=== PATIENT | female | born 1945 | race Caucasian/White ===

== ENCOUNTER 2019-09-16 14:09 | Inpatient (IN) | payer MEDICARE, OTHER ==
[~2019-09-16] VITALS: Ht 162.6 cm; Wt 83.0 kg
[2019-10-04] MEDS ORDERED: COREG 3.1253.125 MG PO (15:05)
[2019-10-04] MEDS ORDERED: LISINOPRIL40 MG PO (15:06)
[2019-10-04] MEDS ORDERED: ZANAFLEX4 MG PO (15:06)
[2019-10-04] MEDS ORDERED: LIPITOR10 MG PO (15:06)
[2019-10-04] MEDS ORDERED: NORVASC10 MG PO (15:06)
[2019-10-04] MEDS ORDERED: PEPCID40 MG PO (15:06)
[2019-10-04] MEDS ORDERED: ALENDRONATE SOD35 MG PO (15:07)
[2019-10-05 11:43] LABS: ANION GAP 13.1 mmol/L (8-16); BASOPHILS 0.3 % (0-2); CALCIUM 9.6 mg/dL (8.5-10.1); CREATININE - SERUM 1.2 mg/dL (0.6-1.3); EOSINOPHILS 1.1 % (0-7); HEMATOCRIT 39.7 % (36.0-48.0); HEMOGLOBIN 12.9 g/dL (12-16); IMMATURE GRANULOCYTES 0.2 % (0-5); LYMPHOCYTES 37.7 % (15-50); MCH 31.2 pg (26.0-34.0); MCHC 32.5 g/dL (31.0-37.0); MCV 95.9 fL (80.0-100.0); MEAN PLATELET VOLUME 10.3 fL (7.4-10.4); MONOCYTES 4.1 % (2-11); NEUTROPHILS 56.6 % (40-80); PLATELET COUNT 327 10x3/uL (130-400); POTASSIUM - SERUM 4.1 mmol/L (3.5-5.1); RBC 4.14 10x6/uL (4.00-5.40); WBC 12.3 10x3/uL (4.8-10.8)
[2019-10-05 11:50] LABS: APTT 26.4 SECONDS (22.8-39.4); INR 0.91 (0.85-1.17); PROTIME 12.2 SECONDS (11.6-15.0)
[2019-10-05 14:02] LABS: BACTERIA FEW /hpf (NEGATIVE); BILIRUBIN NEGATIVE (NEGATIVE); EPITHELIAL CELLS 0-5 /hpf (0-5); GLUCOSE NEGATIVE (NEGATIVE); KETONE NEGATIVE (NEGATIVE); NITRITE NEGATIVE (NEGATIVE); RED CELLS - URINE RARE /hpf (0-5); UROBILINOGEN NORMAL (NORMAL); WHITE CELLS - URINE 0-5 /hpf (NEGATIVE)
[2019-10-10] VITALS (12 sets, daily range): BP systolic 84–135; BP diastolic 39–75; BMI 32.3; BMI 31.5
[2019-10-10] MEDS ORDERED: FISH OIL 1,0001 CA1 PO (06:19)
[2019-10-10] MEDS ORDERED: VITAMIN D10000 UNI1 PO (06:19)
[2019-10-10] MEDS ORDERED: CENTRUM SILVER1 EAC3 PO (06:20)
[2019-10-10 06:52] LABS: BILIRUBIN NEGATIVE (NEGATIVE); GLUCOSE NEGATIVE (NEGATIVE); KETONE NEGATIVE (NEGATIVE); NITRITE NEGATIVE (NEGATIVE); UROBILINOGEN NORMAL (NORMAL)
--- NOTE | 2019-10-10 08:48 | NUR ---
PLASMA BLADE SETTING 01/08 GROUBDING PAD LEFT FLANK LOT # [id number] EXP 04/25/2021 PT RIGHT LEG CLEANED WITH HIBICLENS AND ALCOHOL FROM THIGH TO TOES CIRCUMFERENTIALLY PRIOR TO PREP RIGHT LEG PREPPED WITH CHLORAPREP X2 FROM THIGH TO TOES CIRCUMFERENTIALLY. RN IN STERILE ATTIRE TO PREP PT PRIO TO PROCEDURE. WOUND BED PACKED WITH TOBRA AND VANC. TRAFFIC IN ROOM KEPT TO MINIMUM.
--- NOTE | 2019-10-10 10:18 | NUR ---
1015 DR COTE AT BEDSIDE. REBLOCKED KNEE. WILL CONTINUE TO MONITOR.
--- NOTE | 2019-10-10 10:53 | NUR ---
PT ARRIVED TO FLOOR VIA BED. ALERT AND ORIENTED. O2 AT 2L VIA NC. RIGHT KNEE DRESSING C/D/I. VS STABLE. BP LOW. WILL CONTINUE TO MONITOR. BED LOW. CL IN REACH.
[2019-10-10] MEDS ORDERED: COREG 3.1253.125 MG PO (10:55)
[2019-10-10] MEDS ORDERED: LISINOPRIL40 MG PO (10:55)
[2019-10-10] MEDS ORDERED: NORVASC10 MG PO ×2 (10:56)
[2019-10-10] MEDS ORDERED: ZANAFLEX2 M1 PO (10:57)
--- NOTE | 2019-10-10 11:41 | NUR ---
MAP 55. BP 93/39. CALLED AND SPOKE WITH JED IN SX BOLUS INITIATED.
--- NOTE | 2019-10-10 11:52 | NUR ---
BP NOW 84/44. MAP 61. WILL COTERNANUE TO MONITOR.
--- NOTE | 2019-10-10 13:38 | NUR ---
PT LYING IN BED. EYES CLOSED. CHEST RISING AND FALLING. VS STABLE. WILL CONTINUE TO MONITOR. BED LOW. CL IN REACH.
[2019-10-10 13:54] LABS: HEMOGLOBIN 12.4 g/dL (12-16)
--- NOTE | 2019-10-10 16:57 | NUR ---
PT TAKEN OFF OF O2 AND SATING 98% ON ROOM AIR.
--- NOTE | 2019-10-10 17:30 | MORECARE ---
CASE MANAGEMENT DISCHARGE SUMMARY PATIENT: NICOLE CLIFTON UNIT: [id number] ADM DATE: 10/10/19 AGE: 74 : 46 SEX: F ROOM/BED: D.1208 AUTHOR: HADLEY,DOC PHYSICIAN: REFERRING PHYSICIAN: MAXIMUS CORREA MD DATE OF SERVICE: 10/10/19 Discharge Plan Patient Name: NICOLE CLIFTON Facility: [facility]:[place] : 1945 Planned Disposition: Outpatient PT\OT Anticipated Discharge Date: 10/13/19 Discharge Date: Expected LOS: 3 Initial Reviewer: [email or web address] Initial Review Date: 10/10/2019 Generated: 10/10/19 6:30 pm Comments DCP- Discharge Planning Updated by [id number]: Daija Copeland on 10/10/19 4:[address] DC PLAN: Return home with her . Needs CPM Ordered - Will Call Annalee on Thursday. PROCEDURE: R TKA, Left knee manipulation. OP THERAPY APPOINTMENT DATE: Will call on Thursday to make appointment. CM met with patient to complete initial dc planning assessment. CM educated patient on the CM role and verbal consent given by patient to complete assessment. CM verified patient's address, phone number, and emergency contact phone numbers. Patient lives at home with . At discharge patient plans to return home and feels this is a safe discharge. CM discussed availability of home health, rehab services, and medical equipment. Patient chose outpatient therapy at [facility]. AGNIESZKA form presented, explained, and signed for [facility]. Signed form placed in chart and left with the patient. CM unable to make appointment as they are closed at this time. Appointment to be made tomorrow. Patient stated sh received her walker and bsc but she refused the CMP because her sister told her she didn't need it. Now patient wants the CPM ordered. CM will contact Annalee tomorrow to get the CPM Ordered. Patient reports transportation to and from therapy will be her . Transportation provider at discharge will be her . CM will continue to follow and will assist as needed with dc plans/needs. Daija Copeland RN, [facility] DCPIA - Discharge Planning Initial Assessment Updated by [id number]: Daija Copeland on 10/10/19 5:25 pm * Is the patient Alert and Oriented? Yes * How many steps to enter\exit or inside your home? * PCP Dr. Madeleine Hooker * Pharmacy [facility]/ * Preadmission Environment Home with Family * ADLs Independent * Equipment Bedside Commode Rolling Walker * Other Equipment Need to have CMP Ordered. * List name and contact numbers for known caregivers / representatives who currently or will assist patient after discharge: Cheo Red [facility] - [phone] * Verbal permission to speak to the caregivers and representatives has been obtained from the patient. Yes * Community resources currently utilized None * Additional services required to return to the preadmission environment? Yes * Can the patient safely return to the preadmission environment? Yes * Has this patient been hospitalized within the prior 30 days at any hospital? No Patient Name: NICOLE CLIFTON Page [phone] at 1730 All edits/amendments must be made on the electronic document DICTATION DATE: 10/10/191729 CHAIN MACHINE OPERATOR: ADENIKE 10/10/191729 RPT#: [id number] DC DATE: STATUS: ADM IN [facility] [address] [place] [address] END OF REPORT
--- NOTE | 2019-10-10 17:40 | NUR ---
PT PLACED ON CPM. PT STATES SHE HAS NO FURTHER NEEDS AT THIS TIME. PT WATCHING TV. ON ROOM AIR. BED LOW. CL IN REACH. WILL CONTINUE TO MONITOR.
--- NOTE | 2019-10-10 17:55 | NUR ---
SPOKE WITH LAB AND THEY STATED THEY HAVE ENOUGH URINE FOR CULTURE. COLLECTED URINE IN COMPUTER.
--- NOTE | 2019-10-10 19:25 | NUR ---
PATIENT RESTING IN BED WITH NO S/S OF DISTRESS ON CPM MACHINE TO RIGHT LEG. ASSISTED PATIENT OFF CPM AND ASSISTED WITH BEDPAN. PLACED PATIENT BACK ON CPM TO HER RIGHT KNEE. PATIENT DENIES OTHER NEEDS AT THIS TIME. BED IN LOWEST POSITION AND CALL LIGHT WITHIN REACH. ENCOURAGED THE PATIENT TO CALL IF SHE HAS OTHER NEEDS. WILL CONTINUE TO MONITOR.
--- NOTE | 2019-10-10 20:40 | NUR ---
REMOVED PATIENT FROM CPM MACHINE
[2019-10-11 01:00] VITALS: BP 99/43
[2019-10-11 04:45] VITALS: BP 97/40
--- NOTE | 2019-10-11 05:15 | NUR ---
PLACED PATIENT ON CPM TO RIGHT KNEE
[2019-10-11 05:16] LABS: BILIRUBIN NEGATIVE (NEGATIVE); GLUCOSE 100 mg/dL (NEGATIVE); KETONE NEGATIVE (NEGATIVE); NITRITE NEGATIVE (NEGATIVE); SPECIFIC GRAVITY 1.015 (1.005-1.020); UROBILINOGEN NORMAL (NORMAL)
[2019-10-11 06:28] LABS: BASOPHILS 0.1 % (0-2); EOSINOPHILS 0 % (0-7); HEMATOCRIT 32.9 % (36.0-48.0); HEMOGLOBIN 10.4 g/dL (12-16); IMMATURE GRANULOCYTES 0.2 % (0-5); LYMPHOCYTES 22.3 % (15-50); MCH 31.3 pg (26.0-34.0); MCHC 31.6 g/dL (31.0-37.0); MCV 99.1 fL (80.0-100.0); MEAN PLATELET VOLUME 11.1 fL (7.4-10.4); MONOCYTES 11.2 % (2-11); NEUTROPHILS 66.2 % (40-80); RBC 3.32 10x6/uL (4.00-5.40); RDW 14.2 % (11.5-14.5); WBC 13.8 10x3/uL (4.8-10.8)
[2019-10-11 06:34] LABS: ANION GAP 19.2 mmol/L (8-16); CARBON DIOXIDE 21.1 mmol/L (21.0-32.0); CREATININE - SERUM 1.3 mg/dL (0.6-1.3); MAGNESIUM - SERUM 1.8 mg/dL (1.8-2.4); PHOSPHOROUS 3.8 mg/dL (2.5-4.9); POTASSIUM - SERUM 4.3 mmol/L (3.5-5.1)
[2019-10-11 06:38] LABS: PLATELET COUNT 235 10x3/uL (130-400)
--- NOTE | 2019-10-11 07:20 | NUR ---
REPORT RECEIVED. PT ON CPM. IV TO LEFT HAND WITH 1/2NS AT 50ML/HR. PT ALERT AND ORIENTED. ON ROOM AIR. PT HAS ANGELITA HOSE ON AND SCD TO LEFT LEG. WILL CONTINUE TO MONITOR.
[2019-10-11 08:08] VITALS: BP 108/40
--- NOTE | 2019-10-11 08:50 | NUR ---
CPM TAKEN OFF OF PT. ANGELITA HOSE REMOVED. PLEXI PULSE APPLIED TO RIGHT FOOT. SCD TO LEFT CALF.
--- NOTE | 2019-10-11 09:42 | NUR ---
PHYSICAL THERAPY GOT PT OUT OF BED TO CHAIR.
[2019-10-11 11:00] VITALS: BP 115/55
--- NOTE | 2019-10-11 11:26 | MORECARE ---
CASE MANAGEMENT DISCHARGE SUMMARY PATIENT: NICOLE LCIFTON UNIT: [id number] ADM DATE: 10/10/19 AGE: 74 : 46 SEX: F ROOM/BED: D.1208 AUTHOR: HADLEY,DOC PHYSICIAN: REFERRING PHYSICIAN: MAXIMUS CORREA MD DATE OF SERVICE: 10/11/19 Discharge Plan Patient Name: NICOLE CLIFTON Facility: [facility]:[place] : 1945 Planned Disposition: Outpatient PT\OT Anticipated Discharge Date: 10/13/19 Discharge Date: Expected LOS: 3 Initial Reviewer: [email or web address] Initial Review Date: 10/10/2019 Generated: 10/11/19 12:25 pm Comments DCP- Discharge Planning Updated by [id number]: Stefany Arguelles on 10/11/19 10:[address] @0950 notified Alexandrea of patient's need for CPM. She states she will notify Aggie to reorder it. DCP- Discharge Planning Updated by [id number]: Daija Copeland on 10/10/19 4:[address] DC PLAN: Return home with her . Needs CPM Ordered - Will Call Annalee on Thursday. PROCEDURE: R TKA, Left knee manipulation. OP THERAPY APPOINTMENT DATE: Will call on Thursday to make appointment. CM met with patient to complete initial dc planning assessment. CM educated patient on the CM role and verbal consent given by patient to complete assessment. CM verified patient's address, phone number, and emergency contact phone numbers. Patient lives at home with . At discharge patient plans to return home and feels this is a safe discharge. CM discussed availability of home health, rehab services, and medical equipment. Patient chose outpatient therapy at [facility]. AGNIESZKA form presented, explained, and signed for [facility]. Signed form placed in chart and left with the patient. CM unable to make appointment as they are closed at this time. Appointment to be made tomorrow. Patient stated sh received her walker and bsc but she refused the CMP because her sister told her she didn't need it. Now patient wants the CPM ordered. CM will contact Annalee tomorrow to get the CPM Ordered. Patient reports transportation to and from therapy will be her . Transportation provider at discharge will be her . CM will continue to follow and will assist as needed with dc plans/needs. Daija Copeland RN, CCM DCPIA - Discharge Planning Initial Assessment Updated by [id number]: Daija Copeland on 10/10/19 5:25 pm * Is the patient Alert and Oriented? Yes * How many steps to enter\exit or inside your home? * PCP Dr. Madeleine Hooker * Pharmacy [facility]/ * Preadmission Environment Home with Family * ADLs Independent * Equipment Bedside Commode Rolling Walker * Other Equipment Need to have CMP Ordered. * List name and contact numbers for known caregivers / representatives who currently or will assist patient after discharge: Cheo Red - [facility] - [phone] * Verbal permission to speak to the caregivers and representatives has been obtained from the patient. Yes * Community resources currently utilized None * Additional services required to return to the preadmission environment? Yes * Can the patient safely return to the preadmission environment? Yes * Has this patient been hospitalized within the prior 30 days at any hospital? No Coverage Notice Reviewer: [id number] Sandhya Copeland Notice Issued Date-Time: 10/10/2019 17:35 Notice Type: IM Admission Notice Notice Delivered To: Patient Relationship to Patient: Global Climate Change Researcher Name: Delivery Method: - Mel Days: Prior Verbal Notification: Recipient Understood Notice: Yes Recipient Signature: Yes Med Rec Note Co-signed by Attending: Coverage Notice Comment: DC IMM delivered, explained, signed by the patient, and placed in his chart. Signed form also left with patient. Daija Copeland RN , CCM Reviewer: [id number] Sandhya Copeland Notice Issued Date-Time: 10/10/2019 17:35 Notice Type: Patient Choice Letter Notice Delivered To: Patient Relationship to Patient: Global Climate Change Researcher Name: Delivery Method: - Mel Days: Prior Verbal Notification: Recipient Understood Notice: Yes Recipient Signature: Yes Med Rec Note Co-signed by Attending: Coverage Notice Comment: commercial parts professional op therapy Last DP export: 10/10/19 4:30 pm Patient Name: NICOLE CLIFTON Page [phone] at 1126 All edits/amendments must be made on the electronic document DICTATION DATE: 10/11/19 1125 FORM COVERER: ADENIKE 10/11/19 1125 RPT#: [id number] DC DATE: STATUS: ADM IN [facility] [address] [place] [address] END OF REPORT
--- NOTE | 2019-10-11 11:51 | NUR ---
REQUESTED AND GIVNE ONE HYDROCODONE PO FOR C/O RIGHT KNEE PAIN LEVEL 8. WILL MONITOR.
--- NOTE | 2019-10-11 12:03 | MORECARE ---
CASE MANAGEMENT DISCHARGE SUMMARY PATIENT: NICOLE CLIFTON UNIT: [id number] ADM DATE: 10/10/19 AGE: 74 : 46 SEX: F ROOM/BED: D.1208 AUTHOR: HADLEY,DOC PHYSICIAN: REFERRING PHYSICIAN: MAXIMUS CORREA MD DATE OF SERVICE: 10/11/19 Discharge Plan Patient Name: NICOLE CLIFTON Facility: [facility]:[place] : 1945 Planned Disposition: Outpatient PT\OT Anticipated Discharge Date: 10/13/19 Discharge Date: Expected LOS: 3 Initial Reviewer: [email or web address] Initial Review Date: 10/10/2019 Generated: 10/11/19 1:02 pm Comments DCP- Discharge Planning Updated by [id number]: Stefany Arguelles on 10/11/19 10:[address] Outpatient Therapy [facility] Thursday, 2019 @1:00. Be there at 12:45 for pre-registration. Copy of appointment given to patient. DCP- Discharge Planning Updated by [id number]: Stefany Arguelles on 10/11/19 10:[address] @0950 notified Alexandrea of patient's need for CPM. She states she will notify Aggie to reorder it. DCP- Discharge Planning Updated by [id number]: Daija Copeland on 10/10/19 4:[address] DC PLAN: Return home with her . Needs CPM Ordered - Will Call Annalee on Thursday. PROCEDURE: R TKA, Left knee manipulation. OP THERAPY APPOINTMENT DATE: Will call on Thursday to make appointment. CM met with patient to complete initial dc planning assessment. CM educated patient on the CM role and verbal consent given by patient to complete assessment. CM verified patient's address, phone number, and emergency contact phone numbers. Patient lives at home with . At discharge patient plans to return home and feels this is a safe discharge. CM discussed availability of home health, rehab services, and medical equipment. Patient chose outpatient therapy at [facility]. AGNIESZKA form presented, explained, and signed for [facility]. Signed form placed in chart and left with the patient. CM unable to make appointment as they are closed at this time. Appointment to be made tomorrow. Patient stated sh received her walker and bsc but she refused the CMP because her sister told her she didn't need it. Now patient wants the CPM ordered. CM will contact Annalee tomorrow to get the CPM Ordered. Patient reports transportation to and from therapy will be her . Transportation provider at discharge will be her . CM will continue to follow and will assist as needed with dc plans/needs. Daija Copeland RN, CCM DCPIA - Discharge Planning Initial Assessment Updated by [email or web address]: Daija Copeland on 10/10/19 5:25 pm * Is the patient Alert and Oriented? Yes * How many steps to enter\exit or inside your home? * PCP Dr. Madeleine Hooker * Pharmacy [facility]/ * Preadmission Environment Home with Family * ADLs Independent * Equipment Bedside Commode Rolling Walker * Other Equipment Need to have CMP Ordered. * List name and contact numbers for known caregivers / representatives who currently or will assist patient after discharge: Cheo Red [facility] - [phone] * Verbal permission to speak to the caregivers and representatives has been obtained from the patient. Yes * Community resources currently utilized None * Additional services required to return to the preadmission environment? Yes * Can the patient safely return to the preadmission environment? Yes * Has this patient been hospitalized within the prior 30 days at any hospital? No Coverage Notice Reviewer: [id number] Sandhya Copeland Notice Issued Date-Time: 10/10/2019 17:35 Notice Type: IM Admission Notice Notice Delivered To: Patient Relationship to Patient: Pbx Mechanic Name: Delivery Method: - Mel Days: Prior Verbal Notification: Recipient Understood Notice: Yes Recipient Signature: Yes Med Rec Note Co-signed by Attending: Coverage Notice Comment: DC IMM delivered, explained, signed by the patient, and placed in his chart. Signed form also left with patient. Daija Copeland RN , CCM Reviewer: [id number] - Daija Copeland Notice Issued Date-Time: 10/10/2019 17:35 Notice Type: Patient Choice Letter Notice Delivered To: Patient Relationship to Patient: Pbx Mechanic Name: Delivery Method: - Mel Days: Prior Verbal Notification: Recipient Understood Notice: Yes Recipient Signature: Yes Med Rec Note Co-signed by Attending: Coverage Notice Comment: cap and stud machine operator op therapy Last DP export: 10/11/19 10:26 a Patient Name: NICOLE CLIFTON Page [phone] at 1203 All edits/amendments must be made on the electronic document DICTATION DATE: 10/11/191201 COST ENGINEER: ADENIKE 10/11/191201 RPT#: [id number] DC DATE: STATUS: ADM IN [facility] [address] [place] [address] END OF REPORT
[2019-10-11 13:27] VITALS: Ht 162.6 cm; Wt 83.0 kg
[2019-10-11 15:00] VITALS: BP 115/68
--- NOTE | 2019-10-11 18:29 | MORECARE ---
CASE MANAGEMENT DISCHARGE SUMMARY PATIENT: NICOLE CLIFTON UNIT: [id number] ADM DATE: 10/10/19 AGE: 74 : 46 SEX: F ROOM/BED: D.1208 AUTHOR: HADLEY,DOC PHYSICIAN: REFERRING PHYSICIAN: MAXIMUS CORREA MD DATE OF SERVICE: 10/11/19 Discharge Plan Patient Name: NICOLE CLIFTON Facility: [facility]:[place] : 1945 Planned Disposition: Outpatient PT\OT Anticipated Discharge Date: 10/13/19 Discharge Date: Expected LOS: 3 Initial Reviewer: [id number] Initial Review Date: 10/10/2019 Generated: 10/11/19 7:28 pm Comments DCP- Discharge Planning Updated by [email or web address]: Stefany Arguelles on 10/11/19 10:[address] Outpatient Therapy [facility] Thursday, 2019 @1:00. Be there at 12:45 for pre-registration. Copy of appointment given to patient. DCP- Discharge Planning Updated by [email or web address]: Stefany Arguelles on 10/11/19 10:[address] @0950 notified Alexandrea of patient's need for CPM. She states she will notify Aggie to reorder it. DCP- Discharge Planning Updated by [id number]: Daija Copeland on 10/10/19 4:[address] DC PLAN: Return home with her . Needs CPM Ordered - Will Call Annalee on Thursday. PROCEDURE: R TKA, Left knee manipulation. OP THERAPY APPOINTMENT DATE: Will call on Thursday to make appointment. CM met with patient to complete initial dc planning assessment. CM educated patient on the CM role and verbal consent given by patient to complete assessment. CM verified patient's address, phone number, and emergency contact phone numbers. Patient lives at home with . At discharge patient plans to return home and feels this is a safe discharge. CM discussed availability of home health, rehab services, and medical equipment. Patient chose outpatient therapy at [facility]. AGNIESZKA form presented, explained, and signed for [facility]. Signed form placed in chart and left with the patient. CM unable to make appointment as they are closed at this time. Appointment to be made tomorrow. Patient stated sh received her walker and bsc but she refused the CMP because her sister told her she didn't need it. Now patient wants the CPM ordered. CM will contact Annalee tomorrow to get the CPM Ordered. Patient reports transportation to and from therapy will be her . Transportation provider at discharge will be her . CM will continue to follow and will assist as needed with dc plans/needs. Daija Copeland RN, CCM DCPIA - Discharge Planning Initial Assessment Updated by [id number]: Daija Copeland on 10/10/19 5:25 pm * Is the patient Alert and Oriented? Yes * How many steps to enter\exit or inside your home? * PCP Dr. Madeleine Hooker * Pharmacy [facility]/ * Preadmission Environment Home with Family * ADLs Independent * Equipment Bedside Commode Rolling Walker * Other Equipment Need to have CMP Ordered. * List name and contact numbers for known caregivers / representatives who currently or will assist patient after discharge: Cheo Red [facility] - [phone] * Verbal permission to speak to the caregivers and representatives has been obtained from the patient. Yes * Community resources currently utilized None * Additional services required to return to the preadmission environment? Yes * Can the patient safely return to the preadmission environment? Yes * Has this patient been hospitalized within the prior 30 days at any hospital? No Coverage Notice Reviewer: [id number] Sandhya Copeland Notice Issued Date-Time: 10/10/2019 17:35 Notice Type: IM Admission Notice Notice Delivered To: Patient Relationship to Patient: Plastering Supervisor Name: Delivery Method: - Mel Days: Prior Verbal Notification: Recipient Understood Notice: Yes Recipient Signature: Yes Med Rec Note Co-signed by Attending: Coverage Notice Comment: DC IMM delivered, explained, signed by the patient, and placed in his chart. Signed form also left with patient. Daija Copeland RN , CCM Reviewer: [id number] - Daija Copeland Notice Issued Date-Time: 10/10/2019 17:35 Notice Type: Patient Choice Letter Notice Delivered To: Patient Relationship to Patient: Plastering Supervisor Name: Delivery Method: - Mel Days: Prior Verbal Notification: Recipient Understood Notice: Yes Recipient Signature: Yes Med Rec Note Co-signed by Attending: Coverage Notice Comment: drivematic machine operator op therapy Last DP export: 10/11/19 11:03 a Patient Name: NICOLE CLIFTON Page [phone] at 1829 All edits/amendments must be made on the electronic document DICTATION DATE: 10/11/191827 BILL CUTTER: ADENIKE 10/11/191827 RPT#: [id number] DC DATE: STATUS: ADM IN [facility] [address] [place] [address] END OF REPORT
--- NOTE | 2019-10-11 19:21 | NUR ---
PATIENT RESTING IN BED WITH EYES CLOSED AND NO S/S OF DISTRESS. BED IN LOWEST POSITION AND CALL LIGHT WITHIN REACH. WILL CONTINUE TO MONITOR.
[2019-10-11 21:03] VITALS: BP 104/50
[2019-10-12 04:00] VITALS: BP 126/46
--- NOTE | 2019-10-12 05:22 | NUR ---
PLACED PATIENT ON CPM TO RIGHT KNEE
[2019-10-12 06:26] LABS: BASOPHILS 0.1 % (0-2); EOSINOPHILS 0.5 % (0-7); HEMATOCRIT 28.7 % (36.0-48.0); HEMOGLOBIN 9.2 g/dL (12-16); IMMATURE GRANULOCYTES 0.4 % (0-5); LYMPHOCYTES 24.4 % (15-50); MCH 30.8 pg (26.0-34.0); MCHC 32.1 g/dL (31.0-37.0); MEAN PLATELET VOLUME 10.7 fL (7.4-10.4); MONOCYTES 10.5 % (2-11); NEUTROPHILS 64.1 % (40-80); PLATELET COUNT 228 10x3/uL (130-400); RBC 2.99 10x6/uL (4.00-5.40); RDW 14.3 % (11.5-14.5); WBC 13.5 10x3/uL (4.8-10.8)
[2019-10-12 06:40] LABS: ANION GAP 14.1 mmol/L (8-16); CARBON DIOXIDE 23.4 mmol/L (21.0-32.0); CREATININE - SERUM 1.2 mg/dL (0.6-1.3)
[2019-10-12 06:57] LABS: POTASSIUM - SERUM 3.5 mmol/L (3.5-5.1)
[2019-10-12 07:00] VITALS: BP 116/52
--- NOTE | 2019-10-12 08:32 | NUR ---
0700 AWAKE ALERT ASSESSMENT COMPLETE NO C/O PAIN
--- NOTE | 2019-10-12 08:33 | NUR ---
0810 UP ON BEDPAN WITH ASSIST X 2 VOIDED 400 ML
--- NOTE | 2019-10-12 08:42 | NUR ---
TAKEN OFF CPM MACHINE TO RIGHT LEG
--- NOTE | 2019-10-12 09:14 | NUR ---
0914 PATIENT AMBULATING IN LEDEZMA UTILIZING WALKER WITH PHYSICAL THERAPY TO STANDBY ASSIST ADITYA WELL
--- NOTE | 2019-10-12 10:25 | NUR ---
1005 ASSIST X 2 UP AND OUT OF RECLINER CHAIR VOIDED 300 ML URINE PLACED O2 ON AT 2L/NC WHILE UP ON BSC. ASSIST BACK TO CHAIR 02 REMOVED AND REMAINS OFF
--- NOTE | 2019-10-12 10:28 | NUR ---
1025 DR BATES ROUNDING ON PATIENT
--- NOTE | 2019-10-12 11:32 | NUR ---
Rehab Prescreening Consult recieved and the chart has been reviewed. he is [facility] managed Medicare and will require a preauth. An OT eval is ordered but still pending. Once completed all information will be submitted to [facility] for their review. Eneida Ly RN Clinical Liaison, Rehab
[2019-10-12 15:00] VITALS: BP 115/50
--- NOTE | 2019-10-12 18:26 | NUR ---
1500 DR MYERS ROUNDING ON PATIENT
--- NOTE | 2019-10-12 19:43 | NUR ---
PATIENT RESTING IN BED AND DENIES NEEDS AT THIS TIME. BED IN LOWEST POSITION AND CALL LIGHT WITHIN REACH. ENCOURAGED THE PATIENT TO CALL IF SHE HAS NEEDS. WILL CONTINUE TO MONITOR.
[2019-10-12 21:10] VITALS: BP 111/45
--- NOTE | 2019-10-13 04:05 | NUR ---
PLACED PATIENT ON CPM MACHINE TO RIGHT KNEE
[2019-10-13 04:11] VITALS: BP 111/46
[2019-10-13 06:23] LABS: BASOPHILS 0.2 % (0-2); EOSINOPHILS 0.6 % (0-7); HEMATOCRIT 28.5 % (36.0-48.0); HEMOGLOBIN 9.2 g/dL (12-16); IMMATURE GRANULOCYTES 0.3 % (0-5); LYMPHOCYTES 28.1 % (15-50); MCH 30.7 pg (26.0-34.0); MCHC 32.3 g/dL (31.0-37.0); MEAN PLATELET VOLUME 10.7 fL (7.4-10.4); MONOCYTES 8.6 % (2-11); NEUTROPHILS 62.2 % (40-80); PLATELET COUNT 247 10x3/uL (130-400); RDW 14.1 % (11.5-14.5); WBC 11.6 10x3/uL (4.8-10.8)
[2019-10-13 06:39] LABS: ANION GAP 13.8 mmol/L (8-16); CALCIUM 8.1 mg/dL (8.5-10.1); CARBON DIOXIDE 25.3 mmol/L (21.0-32.0); CREATININE - SERUM 1.3 mg/dL (0.6-1.3); POTASSIUM - SERUM 4.1 mmol/L (3.5-5.1)
[2019-10-13 07:22] VITALS: BP 115/53
--- NOTE | 2019-10-13 08:30 | NUR ---
AWAKE AND ALERT. ORIENTED X3. NO C/O AT THIS TIME. SITTING UP IN CHAIR AT BEDSIDE. ATE ALL OF BREAKFAST. REFUSED OFFER OF PAIN MED. UP TO BR WITH ONE PERSON MIN ASSIST. VOIDED WITHOUT DIFFICULTY. SL TO LEFT HAND IS PATENT WITHOUT REDNESS AT INSERTION SITE. DENIES NEEDS.
--- NOTE | 2019-10-13 10:07 | NUR ---
BECAME DIZZY WITH AMBULATION IN HALLWAY. O2 SAT 94% ON RA BP WAS 117/52. RETURNED TO ROOM POSITIONE IN BED FOR COMFORT.
--- NOTE | 2019-10-13 11:40 | MORECARE ---
CASE MANAGEMENT DISCHARGE SUMMARY PATIENT: NICOLE HELLER UNIT: [id number] ADM DATE: 10/10/19 AGE: 74 : 47 SEX: F ROOM/BED: D.1208 AUTHOR: HADLEY,DOC PHYSICIAN: REFERRING PHYSICIAN: MAXIMUS CORREA MD DATE OF SERVICE: 10/13/19 Discharge Plan Patient Name: NICOLE HELLER Facility: [facility]:[place] : 1945 Planned Disposition: Outpatient PT\OT Anticipated Discharge Date: 10/13/19 Discharge Date: Expected LOS: 3 Initial Reviewer: [email or web address] Initial Review Date: 10/10/2019 Generated: 10/13/19 12:39 pm Comments DCP- Discharge Planning Updated by [email or web address]: Stefany Arguelles on 10/13/19 10:[address] 0n 10/11 Patient signed a Patient choice for [facility], pending insurance prior-authorization. Contacted Rehab repr. and pending OT eval for insurance prior-auth. DCP- Discharge Planning Updated by [id number]: Stefany Arguelles on 10/11/19 10:[address] Outpatient Therapy [facility] Thursday, 2019 @1:00. Be there at 12:45 for pre-registration. Copy of appointment given to patient. DCP- Discharge Planning Updated by [id number]: Stefany Arguelles on 10/11/19 10:[address] @0950 notified Alexandrea of patient's need for CPM. She states she will notify Aggie to reorder it. DCP- Discharge Planning Updated by [email or web address]: Daija Copeland on 10/10/19 4:[address] DC PLAN: Return home with her . Needs CPM Ordered - Will Call Annalee on Thursday. PROCEDURE: R TKA, Left knee manipulation. OP THERAPY APPOINTMENT DATE: Will call on Thursday to make appointment. CM met with patient to complete initial dc planning assessment. CM educated patient on the CM role and verbal consent given by patient to complete assessment. CM verified patient's address, phone number, and emergency contact phone numbers. Patient lives at home with . At discharge patient plans to return home and feels this is a safe discharge. CM discussed availability of home health, rehab services, and medical equipment. Patient [facility]. AGNIESZKA form presented, explained, and signed for [facility]. Signed form placed in chart and left with the patient. CM unable to make appointment as they are closed at this time. Appointment to be made tomorrow. Patient stated sh received her walker and bsc but she refused the CMP because her sister told her she didn't need it. Now patient wants the CPM ordered. CM will contact Annalee tomorrow to get the CPM Ordered. Patient reports transportation to and from therapy will be her . Transportation provider at discharge will be her . CM will continue to follow and will assist as needed with dc plans/needs. Daija Copeland RN, CCM DCPIA - Discharge Planning Initial Assessment Updated by [id number]: Daija Copeland on 10/10/19 5:25 pm * Is the patient Alert and Oriented? Yes * How many steps to enter\exit or inside your home? * PCP Dr. Madeleine Arthur [place] * Pharmacy [facility] * Preadmission Environment Home with Family * ADLs Independent * Equipment Bedside Commode Rolling Walker * Other Equipment Need to have CMP Ordered. * List name and contact numbers for known caregivers / representatives who currently or will assist patient after discharge: Cheo Red - [facility] - [phone] * Verbal permission to speak to the caregivers and representatives has been obtained from the patient. Yes * Community resources currently utilized None * Additional services required to return to the preadmission environment? Yes * Can the patient safely return to the preadmission environment? Yes * Has this patient been hospitalized within the prior 30 days at any hospital? No Coverage Notice Reviewer: [id number] Sandhya Copeland Notice Issued Date-Time: 10/10/2019 17:35 Notice Type: IM Admission Notice Notice Delivered To: Patient Relationship to Patient: Scrap Crusher Name: Delivery Method: - Mel Days: Prior Verbal Notification: Recipient Understood Notice: Yes Recipient Signature: Yes Med Rec Note Co-signed by Attending: Coverage Notice Comment: DC IMM delivered, explained, signed by the patient, and placed in his chart. Signed form also left with patient. 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 Pending Insurance prior-authorization. Reviewer: [id number] Sandhya Arguelles Notice Issued Date-Time: 10/12/2019 11:17 Notice Type: Patient Choice Letter Notice Delivered To: Patient Relationship to Patient: Self Scrap Crusher Name: Nicole Heller Delivery Method: HAND - Hand Delivered Mel Days: Prior Verbal Notification: Recipient Understood Notice: Yes Recipient Signature: Yes Med Rec Note Co-signed by Attending: Coverage Notice Comment: Patient choice signed by patient for [facility], pending insurance pre-authorization. Last DP export: 10/11/19 5:29 p Patient Name: NICOLE HELLER Page [phone] at 1140 All edits/amendments must be made on the electronic document DICTATION DATE: 10/13/19 1139 TELLER SUPERVISOR: ADENIKE 10/13/19 1139 RPT#: [id number] DC DATE: STATUS: ADM IN [facility] [address] [place] [address] END OF REPORT
[2019-10-13 12:29] VITALS: BP 117/52
--- NOTE | 2019-10-13 15:59 | MORECARE ---
CASE MANAGEMENT DISCHARGE SUMMARY PATIENT: NICOLE HELLER UNIT: [id number] ADM DATE: 10/10/19 AGE: 74 : 47 SEX: F ROOM/BED: D.1208 AUTHOR: HADLEY,DOC PHYSICIAN: REFERRING PHYSICIAN: MAXIMUS CORREA MD DATE OF SERVICE: 10/13/19 Discharge Plan Patient Name: NICOLE HELLER Facility: [facility]:[place] : 1945 Planned Disposition: Outpatient PT\OT Anticipated Discharge Date: 10/13/19 Discharge Date: Expected LOS: 3 Initial Reviewer: [id number] Initial Review Date: 10/10/2019 Generated: 10/13/19 4:58 pm Comments DCP- Discharge Planning Updated by [id number]: Stefany Arguelles on 10/13/19 2:[address] [facility], all the information has been faxed to the patient's insurance. Awaiting insurance authorization for rehab. DCP- Discharge Planning Updated by [id number]: Stefany Arguelles on 10/13/19 2:[address] Late entry: 0n 10/11 Patient signed a Patient choice for [facility], pending insurance prior-authorization. Contacted Rehab repr. and pending OT eval for insurance prior-auth. DCP- Discharge Planning Updated by [email or web address]: Stefany Arguelles on 10/11/19 10:[address] Outpatient Therapy [facility] Thursday, 2019 @1:00. Be there at 12:45 for pre-registration. Copy of appointment given to patient. DCP- Discharge Planning Updated by [email or web address]: Stefany Arguelles on 10/11/19 10:[address] @0950 notified Alexandrea of patient's need for CPM. She states she will notify Aggie to reorder it. DCP- Discharge Planning Updated by [email or web address]: Daija Copeland on 10/10/19 4:[address] DC PLAN: Return home with her . Needs CPM Ordered - Will Call Annalee on Thursday. PROCEDURE: R TKA, Left knee manipulation. OP THERAPY APPOINTMENT DATE: Will call on Thursday to make appointment. CM met with patient to complete initial dc planning assessment. CM educated patient on the CM role and verbal consent given by patient to complete assessment. CM verified patient's address, phone number, and emergency contact phone numbers. Patient lives at home with . At discharge patient plans to return home and feels this is a safe discharge. CM discussed availability of home health, rehab services, and medical equipment. Patient chose outpatient therapy at [facility]. AGNIESZKA form presented, explained, and signed for [facility]. Signed form placed in chart and left with the patient. CM unable to make appointment as they are closed at this time. Appointment to be made tomorrow. Patient stated sh received her walker and bsc but she refused the CMP because her sister told her she didn't need it. Now patient wants the CPM ordered. CM will contact Annalee tomorrow to get the CPM Ordered. Patient reports transportation to and from therapy will be her . Transportation provider at discharge will be her . CM will continue to follow and will assist as needed with dc plans/needs. Daija Copeland RN, [facility] DCPIA - Discharge Planning Initial Assessment Updated by [email or web address]: Daija Copeland on 10/10/19 5:25 pm * Is the patient Alert and Oriented? Yes * How many steps to enter\exit or inside your home? * PCP Dr. Madeleine [facility] * Pharmacy [facility] * Preadmission Environment Home with Family * ADLs Independent * Equipment Bedside Commode Rolling Walker * Other Equipment Need to have CMP Ordered. * List name and contact numbers for known caregivers / representatives who currently or will assist patient after discharge: Cheo Red - [facility] - [phone] * Verbal permission to speak to the caregivers and representatives has been obtained from the patient. Yes * Community resources currently utilized None * Additional services required to return to the preadmission environment? Yes * Can the patient safely return to the preadmission environment? Yes * Has this patient been hospitalized within the prior 30 days at any hospital? No Coverage Notice Reviewer: [id number] Sandhya Copeland Notice Issued Date-Time: 10/10/2019 17:35 Notice Type: IM Admission Notice Notice Delivered To: Patient Relationship to Patient: Supervisor [employer] Name: Delivery Method: - Mel Days: Prior Verbal Notification: Recipient Understood Notice: Yes Recipient Signature: Yes Med Rec Note Co-signed by Attending: Coverage Notice Comment: DC IMM delivered, explained, signed by the patient, and placed in his chart. Signed form also left with patient. Daija Copeland RN , CCM Reviewer: [id number] - Daija Copeland Notice Issued Date-Time: 10/10/2019 17:35 Notice Type: Patient Choice Letter Notice Delivered To: Patient Relationship to Patient: Supervisor [employer] Name: Delivery Method: - Mel Days: Prior Verbal Notification: Recipient Understood Notice: Yes Recipient Signature: Yes Med Rec Note Co-signed by Attending: Coverage Notice Comment: [facility] Reviewer: [id number] Sandhya Arguelles Notice Issued Date-Time: 10/12/2019 10:48 Notice Type: Patient Choice Letter Notice Delivered To: Patient Relationship to Patient: Self Supervisor [employer] Name: Nicole Heller Delivery Method: HAND - Hand Delivered Mel Days: Prior Verbal Notification: Recipient Understood Notice: Yes Recipient Signature: Yes Med Rec Note Co-signed by Attending: Coverage Notice Comment: Patient Choice for [facility]. Pending Insurance prior-authorization. Reviewer: [id number] Sandhya Arguelles Notice Issued Date-Time: 10/12/2019 11:17 Notice Type: Patient Choice Letter Notice Delivered To: Patient Relationship to Patient: Self Supervisor [employer] Name: Nicole Heller Delivery Method: HAND - Hand Delivered Mel Days: Prior Verbal Notification: Recipient Understood Notice: Yes Recipient Signature: Yes Med Rec Note Co-signed by Attending: Coverage Notice Comment: Patient choice signed by patient for [facility], pending insurance pre-authorization. Last DP export: 10/13/19 10:40 a Patient Name: NICOLE HELLER Page [phone] at 1559 All edits/amendments must be made on the electronic document DICTATION DATE: 10/13/19 1558 CHIEF DESIGN BRANCH: ADENIKE 10/13/19 1558 RPT#: [id number] DC DATE: STATUS: ADM IN [facility] [address] [place] [address] END OF REPORT
[2019-10-13 16:05] VITALS: BP 122/58
--- NOTE | 2019-10-13 17:20 | NUR ---
CPM ON AT THIS TIME TO RIGHT KNEE. ATE MOST OF SUPPER. DENIES NEEDS. NO CHANGES NOTED.
--- NOTE | 2019-10-13 17:29 | NUR ---
OT NOTE: PT COMPLETED SUPINE TO SIT WITH CGA/MIN A. PT COMPLETED SIT TO STAND WITH MIN A/CGA. PT COOPERATIVE . [id number] THANK YOU,NHI DUNCAN
--- NOTE | 2019-10-13 19:15 | NUR ---
PT SITTING UP IN BED WITHOUT DISTRESS, AOX4. RIGHT KNEE IN CPM, DRESSING CDI. ANGELITA HOSE IN PLACE BILAT. DENIES PAIN OR NEEDS AT THIS TIME. CLIN REACH, WILL CTM
--- NOTE | 2019-10-13 20:15 | NUR ---
CPM OFF. ASSISTED PT UP TO BEDSIDE COMMODE. PT BECOMES SOB WITH EXERTION. ASSISTED BACK IN BED. PT REQUESTED ANGELITA HOSE BE REMOVED. REMOVED AND PLACED SCDS BILAT. DENIES PAIN, STATES SHE IS ONLY HAVE DISCOMFORT WITH AMBULATION BUT SHE IS FINE ONCE BACK IN BED RESTING. DENIES NEEDS. CL IN REACH, WILL CTM
[2019-10-13 20:36] VITALS: BP 127/52
--- NOTE | 2019-10-13 21:40 | NUR ---
CHG BATH GIVEN AT THIS TIME. TOLERATED WELL. WILL CTM
--- NOTE | 2019-10-13 22:36 | NUR ---
PT STATES PAIN 9/10 IN RIGHT HIP. ASSISTED PT TO TURN TO LEFT SIDE, PILLOW PLACED UNDER RIGHT SIDE. NORCO GIVEN FOR PAIN. DENIES OTHER NEEDS. CL IN REACH, WILL CTM
[2019-10-14 00:49] VITALS: BP 113/47
--- NOTE | 2019-10-14 03:55 | NUR ---
ASSISTED PT TO BEDSIDE COMMODE WITH MINIMAL ASSIST AND BACK TO BED. DENIES OTHER NEEDS. CL IN REACH, WILL CTM
[2019-10-14 04:55] VITALS: BP 105/50
--- NOTE | 2019-10-14 05:05 | NUR ---
CPM ON AT THIS TIME
[2019-10-14 06:28] LABS: BASOPHILS 0.3 % (0-2); EOSINOPHILS 2.4 % (0-7); HEMATOCRIT 27.9 % (36.0-48.0); HEMOGLOBIN 9.1 g/dL (12-16); IMMATURE GRANULOCYTES 0.2 % (0-5); LYMPHOCYTES 31.1 % (15-50); MCHC 32.6 g/dL (31.0-37.0); MCV 94.9 fL (80.0-100.0); MEAN PLATELET VOLUME 10.5 fL (7.4-10.4); MONOCYTES 7.8 % (2-11); NEUTROPHILS 58.2 % (40-80); PLATELET COUNT 264 10x3/uL (130-400); RBC 2.94 10x6/uL (4.00-5.40); WBC 11.1 10x3/uL (4.8-10.8)
[2019-10-14 06:52] LABS: ANION GAP 9.2 mmol/L (8-16); CALCIUM 8.4 mg/dL (8.5-10.1); CARBON DIOXIDE 26.4 mmol/L (21.0-32.0); CREATININE - SERUM 1.2 mg/dL (0.6-1.3); POTASSIUM - SERUM 3.6 mmol/L (3.5-5.1)
--- NOTE | 2019-10-14 07:08 | NUR ---
PT SITTING UP IN CHAIR. RESP EVEN AND UNLABORED. PT DENIES PAIN AT THIS TIME. CPM IN PLACE TO RIGHT LOWER EXTREMITY. DRESSING C/D/I TO RIGHT LOWER EXTREMITY. ABLE TO MOVE TOES, EXTREMITY WARM TO TOUCH. DENIES FURTHER NEEDS AT THIS TIME. CL WITHIN REACH. ENCOURAGED TO CALL WITH NEEDS. CONTINUE POC
[2019-10-14 07:17] VITALS: BP 112/54
--- NOTE | 2019-10-14 08:36 | NUR ---
PT ASSISTED TO BSC X 1 ASSIST WITH WALKER AND TO BEDSIDE CHAIR. PT ADITYA TRANSFER WELL. CL WITHIN REACH. DENIES FURTHER NEEDS AT THIS TIME.
[2019-10-14] MEDS ORDERED: ELIQUIS2.5 MG PO (09:21)
[2019-10-14] MEDS ORDERED: HYDROCODON-ACE1 EA10 PO (09:21)
[2019-10-14] MEDS ORDERED: LEVAQUIN750 MG PO (09:22)
--- NOTE | 2019-10-14 09:46 | OP ---
PATIENT NAME: NICOLE CLIFTON MEDICAL RECORD: [id number] :[birth year] LOCATION:D. D.1208 ADMISSION DATE:10/10/19 SURGEON: MAXIMUS CORREA MD DATE OF OPERATION: 10/10/2019 PREOPERATIVE DIAGNOSIS: Degenerative arthritis of the right knee. POSTOPERATIVE DIAGNOSIS: Degenerative arthritis of the right knee. PROCEDURE: Right total knee arthroplasty. SURGEON: Maximus Correa MD ANESTHESIA: General. INTRAOPERATIVE COMPLICATIONS: None. SUMMARY OF PATHOLOGIC FINDINGS: The patient was found to have severe arthritis on the primarily medial and patellofemoral joint consistent with the preoperative radiographs and physical examination. OPERATIVE SUMMARY IN DETAIL: After obtaining the appropriate preoperative orthopedic surgery consent as well as anesthetic consultation, evaluation and clearance, the patient was brought to the operating room and placed on the operating table in supine position. After general laryngeal mask airway was administered, tourniquet was placed about the proximal aspect of the right lower extremity. Right lower extremity was prepped and draped in routine sterile fashion. The leg was elevated and exsanguinated, tourniquet was inflated to 350 mmHg. Appropriate timeout was taken and agreed upon by all at this point. A midline incision was then made over the right knee, taken down for paramedian arthrotomy. The capsule was cut in a paramedian fashion and the patella was everted distal femur. Distal femoral soft tissue exposure was done in the usual fashion. After soft tissue had been excised in the usual fashion, intramedullary guide hole was created for intramedullary guided distal femoral cuts. Having completed this, the entire proximal tibia was exposed for intramedullary guided tibial cuts. This likewise was finished, the appropriate measurements were taken. Chamfer cuts were made on the distal femur. Having completed the chamfer cuts on the distal femur, the appropriate trials were put into place, taken through range of motion and found to be stable in all planes. Having completed this, final distal femoral and proximal tibial preparations were then followed by removal of the trials and the excision of the arthritic patellar facet, this was followed by final preparation of the patella for cementation. After substantial pulsatile lavage, the bone ends were dried. Final components were cemented into place. After excess cement was removed and cement was allowed to harden, the knee was taken through range of motion and found to be stable in all planes. A gram of vancomycin, a gram of tobramycin were then placed in the knee and the knee was closed by CHARMAINE Cisneros, with #2 Ethibond followed by #1 Vicryl, 2-0 Vicryl and skin yaritza. Sterile dressings were applied. The patient was awakened and taken to recovery room in stable condition. All final needle and sponge counts were correct. TRANSINT:[id number] Voice Confirmation ID: [id number] DOCUMENT ID: [id number] OPERATIVE REPORT [id number] NICOLE CLIFTON MD, MAXIMUS SHIN at 0946 CC: [id number] DICTATION DATE: 10/14/19 0607 PUBLIC WORKS TECHNICIAN: 10/14/19 0852 ADM IN [facility] [address] [place] [address]
--- NOTE | 2019-10-14 10:30 | NUR ---
PT REMAINS IN CHAIR AT BEDSIDE. DENIES NEEDS AT THIS TIME. CL WITHIN REACH. ENCOURAGED TO CALL WITH NEEDS.
--- NOTE | 2019-10-14 10:53 | NUR ---
Rehab Note- Received a voicemail from January with [facility] stating that the medical communication specialist had denied the patient an inpatient acute rehab stay that her level of care could be met at a SNF. A peer to peer can be set up by contacting January at [phone] by Thursday10/17/2019 @ 4301. Will notify CM. Thank you for this referral! Manisha Vallecillo RN Clinical Liaison, [facility]
--- NOTE | 2019-10-14 11:52 | MORECARE ---
CASE MANAGEMENT DISCHARGE SUMMARY PATIENT: NICOLE HELLER UNIT: [id number] ADM DATE: 10/10/19 AGE: 74 : 47 SEX: F ROOM/BED: D.1208 AUTHOR: HADLEY,DOC PHYSICIAN: REFERRING PHYSICIAN: MAXIMUS CORREA MD DATE OF SERVICE: 10/14/19 Discharge Plan Patient Name: NICOLE HELLER Facility: [facility]:[place] : 1945 Planned Disposition: Outpatient PT\OT Anticipated Discharge Date: 10/13/19 Discharge Date: Expected LOS: 3 Initial Reviewer: [id number] Initial Review Date: 10/10/2019 Generated: 10/14/19 12:52 pm Comments DCP- Discharge Planning Updated by [id number]: Stefany Arguelles on 10/13/19 2:[address] [facility], all the information has been faxed to the patient's insurance. Awaiting insurance authorization for rehab. DCP- Discharge Planning Updated by [id number]: Stefany Arguelles on 10/13/19 2:[address] Late entry: 0n 10/11 Patient signed a Patient choice for [facility] In-patient Rehab, pending insurance prior-authorization. Contacted Rehab repr. and pending OT eval for insurance prior-auth. DCP- Discharge Planning Updated by [id number]: Stefany Arguelles on 10/11/19 10:[address] Outpatient Therapy [facility] Thursday, 2019 @1:00. Be there at 12:45 for pre-registration. Copy of appointment given to patient. DCP- Discharge Planning Updated by [id number]: Stefany Arguelles on 10/11/19 10:[address] @0950 notified Alexandrea of patient's need for CPM. She states she will notify Aggie to reorder it. DCP- Discharge Planning Updated by [id number]: Daija Copeland on 10/10/19 4:[address] DC PLAN: Return home with her . Needs CPM Ordered - Will Call Annalee on Thursday. PROCEDURE: R TKA, Left knee manipulation. OP THERAPY APPOINTMENT DATE: Will call on Thursday to make appointment. CM met with patient to complete initial dc planning assessment. CM educated patient on the CM role and verbal consent given by patient to complete assessment. CM verified patient's address, phone number, and emergency contact phone numbers. Patient lives at home with . At discharge patient plans to return home and feels this is a safe discharge. CM discussed availability of home health, rehab services, and medical equipment. Patient chose [facility] at [facility]. AGNIESZKA form presented, explained, and signed for [facility]. Signed form placed in chart and left with the patient. CM unable to make appointment as they are closed at this time. Appointment to be made tomorrow. Patient stated sh received her walker and bsc but she refused the CMP because her sister told her she didn't need it. Now patient wants the CPM ordered. CM will contact Annalee tomorrow to get the CPM Ordered. Patient reports transportation to and from therapy will be her . Transportation provider at discharge will be her . CM will continue to follow and will assist as needed with dc plans/needs. Daija Copeland RN, [facility] DCPIA - Discharge Planning Initial Assessment Updated by [id number]: Daija Copeland on 10/10/19 5:25 pm * Is the patient Alert and Oriented? Yes * How many steps to enter\exit or inside your home? * PCP Dr. Madeleine Hooker * Pharmacy [facility]/ * Preadmission Environment Home with Family * ADLs Independent * Equipment Bedside Commode Rolling Walker * Other Equipment Need to have CMP Ordered. * List name and contact numbers for known caregivers / representatives who currently or will assist patient after discharge: Cheo Red - [facility] - [phone] * Verbal permission to speak to the caregivers and representatives has been obtained from the patient. Yes * Community resources currently utilized None * Additional services required to return to the preadmission environment? Yes * Can the patient safely return to the preadmission environment? Yes * Has this patient been hospitalized within the prior 30 days at any hospital? No Coverage Notice Reviewer: [id number] Sandhya Copeland Notice Issued Date-Time: 10/10/2019 17:35 Notice Type: IM Admission Notice Notice Delivered To: Patient Relationship to Patient: Primary Care Nurse Practitioner Name: Delivery Method: - Mel Days: Prior Verbal Notification: Recipient Understood Notice: Yes Recipient Signature: Yes Med Rec Note Co-signed by Attending: Coverage Notice Comment: DC IMM delivered, explained, signed by the patient, and placed in his chart. Signed form also left with patient. 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 Pending Insurance prior-authorization. Reviewer: [id number] Sandhya Arguelles Notice Issued Date-Time: 10/12/2019 11:17 Notice Type: Patient Choice Letter Notice Delivered To: Patient Relationship to Patient: Self Primary Care Nurse Practitioner Name: Nicole Heller Delivery Method: HAND - Hand Delivered Mel Days: Prior Verbal Notification: Recipient Understood Notice: Yes Recipient Signature: Yes Med Rec Note Co-signed by Attending: Coverage Notice Comment: Patient choice signed by patient for [facility] Rehab, pending insurance pre-authorization. Reviewer: [id number] Sandhya Copeland Notice Issued Date-Time: 10/14/2019 10:00 Notice Type: IM Discharge Notice Notice Delivered To: Patient Relationship to Patient: Primary Care Nurse Practitioner Name: Delivery Method: - Mel Days: Prior Verbal Notification: Recipient Understood Notice: Yes Recipient Signature: Yes Med Rec Note Co-signed by Attending: Coverage Notice Comment: DC IMM delivered, explained, signed by the patient, and placed in his chart. Signed form also left with patient. Daija Copeland RN, CCM Last DP export: 10/13/19 2:59 p Patient Name: NICOLE HELLER Page [id number] at 1152 All edits/amendments must be made on the electronic document DICTATION DATE: 10/14/19 1152 LAND CLEARER: ADENIKE 10/14/19 1152 RPT#: [id number] DC DATE: STATUS: ADM IN [facility] [address] [place] [address] END OF REPORT
--- NOTE | 2019-10-14 12:00 | MORECARE ---
CASE MANAGEMENT DISCHARGE SUMMARY PATIENT: NICOLE HELLER UNIT: [id number] ADM DATE: 10/10/19 AGE: 74 : 47 SEX: F ROOM/BED: D.1208 AUTHOR: HADLEY,DOC PHYSICIAN: REFERRING PHYSICIAN: MAXIMUS CORREA MD DATE OF SERVICE: 10/14/19 Discharge Plan Patient Name: NICOLE HELLER Facility: [facility]:[place] : 1945 Planned Disposition: Outpatient PT\OT Anticipated Discharge Date: 10/13/19 Discharge Date: Expected LOS: 3 Initial Reviewer: [id number] Initial Review Date: 10/10/2019 Generated: 10/14/19 12:59 pm Comments DCP- Discharge Planning Updated by [id number]: Daija Copeland on 10/14/19 10:[address] DC PLAN: Home with and [facility]. Patient's insurance denied [place] Rehab. Patient wants to go home anyways and is agreeable to [facility]. AGNIESZKA signed by patient for [facility]. Signed copy left with patient and placed in chart. DC IMM presented, explained and signed by the patient. Signed copy left with patient and placed in patient's chart. She reports her will transport her home today. CM spoke with [facility] [phone], who accepted the referral. Patient will be seen by nursing but will not be seen by therapy until Thursday. CM faxed referral to [facility]. Patient stated her CPM will be delivered to her home today. (She originally refused the CMP). She denied further dc needs for discharge. She agrees that discharge to her home is safe. Daija Copeland RN, [facility] DCP- Discharge Planning Updated by [email or web address]: Stefany Arguelles on 10/13/19 2:[address] [facility], all the information has been faxed to the patient's insurance. Awaiting insurance authorization for rehab. DCP- Discharge Planning Updated by [id number]: Stefany Arguelles on 10/13/19 2:[address] Late entry: 0n 10/11 Patient signed a Patient choice for [facility] BUSINESS PROC[facility] In-patient Rehab, pending insurance prior-authorization. Contacted Rehab repr. and pending OT eval for insurance prior-auth. DCP- Discharge Planning Updated by [id number]: Stefany Arguelles on 10/11/19 10:[address] Outpatient Therapy [facility] Thursday, 2019 @1:00. Be there at 12:45 for pre-registration. Copy of appointment given to patient. DCP- Discharge Planning Updated by [id number]: Stefany Arguelles on 10/11/19 10:[address] @0950 notified Alexandrea of patient's need for CPM. She states she will notify Aggie to reorder it. DCP- Discharge Planning Updated by [id number]: Daija Copeland on 10/10/19 4:[address] DC PLAN: Return home with her . Needs CPM Ordered - Will Call Annalee on Thursday. PROCEDURE: R TKA, Left knee manipulation. OP THERAPY APPOINTMENT DATE: Will call on Thursday to make appointment. CM met with patient to complete initial dc planning assessment. CM educated patient on the CM role and verbal consent given by patient to complete assessment. CM verified patient's address, phone number, and emergency contact phone numbers. Patient lives at home with . At discharge patient plans to return home and feels this is a safe discharge. CM discussed availability of home health, rehab services, and medical equipment. Patient chose outpatient therapy at [facility]. AGNIESZKA form presented, explained, and signed for [facility]. Signed form placed in chart and left with the patient. CM unable to make appointment as they are closed at this time. Appointment to be made tomorrow. Patient stated sh received her walker and bsc but she refused the CMP because her sister told her she didn't need it. Now patient wants the CPM ordered. CM will contact Annalee tomorrow to get the CPM Ordered. Patient reports transportation to and from therapy will be her . Transportation provider at discharge will be her . CM will continue to follow and will assist as needed with dc plans/needs. Daija Copeland RN, [facility] DCPIA - Discharge Planning Initial Assessment Updated by [id number]: Daija Copeland on 10/10/19 5:25 pm * Is the patient Alert and Oriented? Yes * How many steps to enter\exit or inside your home? * PCP Dr. Madeleine Hooker * Pharmacy [facility]/ * Preadmission Environment Home with Family * ADLs Independent * Equipment Bedside Commode Rolling Walker * Other Equipment Need to have CMP Ordered. * List name and contact numbers for known caregivers / representatives who currently or will assist patient after discharge: Cheo Red - [facility] - [phone] * Verbal permission to speak to the caregivers and representatives has been obtained from the patient. Yes * Community resources currently utilized None * Additional services required to return to the preadmission environment? Yes * Can the patient safely return to the preadmission environment? Yes * Has this patient been hospitalized within the prior 30 days at any hospital? No Coverage Notice Reviewer: [id number] Sandhya Arguelles Notice Issued Date-Time: 10/12/2019 11:17 Notice Type: Patient Choice Letter Notice Delivered To: Patient Relationship to Patient: Self Legal Consultant Name: Nicole Heller Delivery Method: HAND - Hand Delivered Mel Days: Prior Verbal Notification: Recipient Understood Notice: Yes Recipient Signature: Yes Med Rec Note Co-signed by Attending: Coverage Notice Comment: Patient choice signed by patient for [facility] Rehab, pending insurance pre-authorization. Reviewer: [id number] Sandhya Arguelles Notice Issued Date-Time: 10/12/2019 10:48 Notice Type: Patient Choice Letter Notice Delivered To: Patient Relationship to Patient: Self Legal Consultant Name: Nicole Heller Delivery Method: HAND - Hand Delivered Mel Days: Prior Verbal Notification: Recipient Understood Notice: Yes Recipient Signature: Yes Med Rec Note Co-signed by Attending: Coverage Notice Comment: Patient Choice for [facility]NA[facility] BUSINESS PROCESS In-patient Rehab. Pending Insurance prior-authorization. Reviewer: [id number] Sandhya Copeland Notice Issued Date-Time: 10/10/2019 17:35 Notice Type: Patient Choice Letter Notice Delivered To: Patient Relationship to Patient: Legal Consultant Name: Delivery Method: - Mel Days: Prior Verbal Notification: Recipient Understood Notice: Yes Recipient Signature: Yes Med Rec Note Co-signed by Attending: Coverage Notice Comment: nonprofit financial controller op therapy Reviewer: [id number] Sandhya Copeland Notice Issued Date-Time: 10/14/2019 10:00 Notice Type: IM Discharge Notice Notice Delivered To: Patient Relationship to Patient: Legal Consultant Name: Delivery Method: - Mel Days: Prior Verbal Notification: Recipient Understood Notice: Yes Recipient Signature: Yes Med Rec Note Co-signed by Attending: Coverage Notice Comment: DC IMM delivered, explained, signed by the patient, and placed in his chart. Signed form also left with patient. Daija Copeland RN , CCM Reviewer: [id number] - Daija Copeland Notice Issued Date-Time: 10/10/2019 17:35 Notice Type: IM Admission Notice Notice Delivered To: Patient Relationship to Patient: Legal Consultant Name: Delivery Method: - Mel Days: Prior Verbal Notification: Recipient Understood Notice: Yes Recipient Signature: Yes Med Rec Note Co-signed by Attending: Coverage Notice Comment: DC IMM delivered, explained, signed by the patient, and placed in his chart. Signed form also left with patient. Daija Copeland RN , CCM Last DP export: 10/14/19 10:52 a Patient Name: NICOLE HELLER Page [phone] at 1200 All edits/amendments must be made on the electronic document DICTATION DATE: 10/14/19 1159 TEMPERATURE REGULATOR PYROMETER: ADENIKE 10/14/19 1159 RPT#: [id number] DC DATE: STATUS: ADM IN [facility] [address] [place] [address] END OF REPORT
--- NOTE | 2019-10-14 12:15 | NUR ---
PT REMAINS UP IN CHAIR AT BEDSIDE. NO ACUTE DISTRESS NOTED. EATING LUNCH. DENIES NEEDS AT THIS TIME. CL WITHIN REACH. ENCOURAGED TO CALL WITH NEEDS.
--- NOTE | 2019-10-14 12:31 | MORECARE ---
CASE MANAGEMENT DISCHARGE SUMMARY PATIENT: NICOLE HELLER UNIT: [id number] ADM DATE: 10/10/19 AGE: 74 : 47 SEX: F ROOM/BED: D.1208 AUTHOR: HADLEY,DOC PHYSICIAN: REFERRING PHYSICIAN: MAXIMUS CORREA MD DATE OF SERVICE: 10/14/19 Discharge Plan Patient Name: NICOLE HELLER Facility: [facility]:[place] : 1945 Planned Disposition: Outpatient PT\OT Anticipated Discharge Date: 10/13/19 Discharge Date: Expected LOS: 3 Initial Reviewer: [id number] Initial Review Date: 10/10/2019 Generated: 10/14/19 1:30 pm Comments DCP- Discharge Planning Updated by [id number]: Daija Copeland on 10/14/19 10:[address] DC PLAN: Home with and [facility]. Patient's insurance denied IN Rehab. Patient wants to go home anyways and is agreeable to [facility]. AGNIESZKA signed by patient for [facility]. Signed copy left with patient and placed in chart. DC IMM presented, explained and signed by the patient. Signed copy left with patient and placed in patient's chart. She reports her will transport her home today. CM spoke with [facility] [phone], who accepted the referral. Patient will be seen by nursing but will not be seen by therapy until Thursday. CM faxed referral to [facility]. Patient stated her CPM will be delivered to her home today. (She originally refused the CMP). She denied further dc needs for discharge. She agrees that discharge to her home is safe. Daija Copeland RN, [facility] DCP- Discharge Planning Updated by [id number]: Stefany Arguelles on 10/13/19 2:[address] [facility], all the information has been faxed to the patient's insurance. Awaiting insurance authorization for rehab. DCP- Discharge Planning Updated by [id number]: Stefany Arguelles on 10/13/19 2:[address] Late entry: 0n 10/11 Patient signed a Patient choice for [facility]ITAL SALES In-patient Rehab, pending insurance prior-authorization. Contacted Rehab repr. and pending OT eval for insurance prior-auth. DCP- Discharge Planning Updated by [id number]: Stefany Arguelles on 10/11/19 10:[address] Outpatient Therapy [facility] Thursday, 2019 @1:00. Be there at 12:45 for pre-registration. Copy of appointment given to patient. DCP- Discharge Planning Updated by [id number]: Stefany Arguelles on 10/11/19 10:[address] @0950 notified Alexandrea of patient's need for CPM. She states she will notify Aggie to reorder it. DCP- Discharge Planning Updated by [id number]: Daija Copeland on 10/10/19 4:[address] DC PLAN: Return home with her . Needs CPM Ordered - Will Call Annalee on Thursday. PROCEDURE: R TKA, Left knee manipulation. OP THERAPY APPOINTMENT DATE: Will call on Thursday to make appointment. CM met with patient to complete initial dc planning assessment. CM educated patient on the CM role and verbal consent given by patient to complete assessment. CM verified patient's address, phone number, and emergency contact phone numbers. Patient lives at home with . At discharge patient plans to return home and feels this is a safe discharge. CM discussed availability of home health, rehab services, and medical equipment. Patient chose outpatient therapy at [facility]. AGNIESZKA form presented, explained, and signed for [facility]. Signed form placed in chart and left with the patient. CM unable to make appointment as they are closed at this time. Appointment to be made tomorrow. Patient stated sh received her walker and bsc but she refused the CMP because her sister told her she didn't need it. Now patient wants the CPM ordered. CM will contact Annalee tomorrow to get the CPM Ordered. Patient reports transportation to and from therapy will be her . Transportation provider at discharge will be her . CM will continue to follow and will assist as needed with dc plans/needs. Daija Copeland RN, [facility] DCPIA - Discharge Planning Initial Assessment Updated by [id number]: Daija Copeland on 10/10/19 5:25 pm * Is the patient Alert and Oriented? Yes * How many steps to enter\exit or inside your home? * PCP Dr. Madeleine Hooker * Pharmacy [facility]/ * Preadmission Environment Home with Family * ADLs Independent * Equipment Bedside Commode Rolling Walker * Other Equipment Need to have CMP Ordered. * List name and contact numbers for known caregivers / representatives who currently or will assist patient after discharge: Cheo Red - [facility] - [phone] * Verbal permission to speak to the caregivers and representatives has been obtained from the patient. Yes * Community resources currently utilized None * Additional services required to return to the preadmission environment? Yes * Can the patient safely return to the preadmission environment? Yes * Has this patient been hospitalized within the prior 30 days at any hospital? No External Providers External Provider: [facility] Next Contact Date: Service Request Date: Service Type: Resolution: Reviewer: Comments: Coverage Notice Reviewer: [id number] Sandhya Arguelles Notice Issued Date-Time: 10/12/2019 11:17 Notice Type: Patient Choice Letter Notice Delivered To: Patient Relationship to Patient: Self Farmworker Animal Name: Nicole Heller Delivery Method: HAND - Hand Delivered Mel Days: Prior Verbal Notification: Recipient Understood Notice: Yes Recipient Signature: Yes Med Rec Note Co-signed by Attending: Coverage Notice Comment: Patient choice signed by patient for [facility] D[facility]ITAL SALES Rehab, pending insurance pre-authorization. Reviewer: [id number] Sandhya Arguelles Notice Issued Date-Time: 10/12/2019 10:48 Notice Type: Patient Choice Letter Notice Delivered To: Patient Relationship to Patient: Self Farmworker Animal Name: Nicole Heller Delivery Method: HAND - Hand Delivered Mel Days: Prior Verbal Notification: Recipient Understood Notice: Yes Recipient Signature: Yes Med Rec Note Co-signed by Attending: Coverage Notice Comment: Patient Choice for DIRECTOR DIGITAL SALES In-patient Rehab. Pending Insurance prior-authorization. Reviewer: [id number] Sandhya Copeland Notice Issued Date-Time: 10/14/2019 10:00 Notice Type: Patient Choice Letter Notice Delivered To: Patient Relationship to Patient: Farmworker Animal Name: Delivery Method: - Mel Days: Prior Verbal Notification: Recipient Understood Notice: Yes Recipient Signature: Yes Med Rec Note Co-signed by Attending: Coverage Notice Comment: JESUS SANTORO Reviewer: [id number] Sandhya Copeland Notice Issued Date-Time: 10/10/2019 17:35 Notice Type: Patient Choice Letter Notice Delivered To: Patient Relationship to Patient: Farmworker Animal Name: Delivery Method: - Mel Days: Prior Verbal Notification: Recipient Understood Notice: Yes Recipient Signature: Yes Med Rec Note Co-signed by Attending: Coverage Notice Comment: palliative senior np op therapy Reviewer: [id number] Sandhya Copeland Notice Issued Date-Time: 10/14/2019 10:00 Notice Type: IM Discharge Notice Notice Delivered To: Patient Relationship to Patient: Farmworker Animal Name: Delivery Method: - Mel Days: Prior Verbal Notification: Recipient Understood Notice: Yes Recipient Signature: Yes Med Rec Note Co-signed by Attending: Coverage Notice Comment: DC IMM delivered, explained, signed by the patient, and placed in his chart. Signed form also left with patient. Daija Copeland RN , CCM Reviewer: [id number] - Daija Copeland Notice Issued Date-Time: 10/10/2019 17:35 Notice Type: IM Admission Notice Notice Delivered To: Patient Relationship to Patient: Farmworker Animal Name: Delivery Method: - Mel Days: Prior Verbal Notification: Recipient Understood Notice: Yes Recipient Signature: Yes Med Rec Note Co-signed by Attending: Coverage Notice Comment: DC IMM delivered, explained, signed by the patient, and placed in his chart. Signed form also left with patient. Daija Copeland RN , CCM Last DP export: 10/14/19 11:00 a Patient Name: NICOLE HELLER Page [id number] at 1231 All edits/amendments must be made on the electronic document DICTATION DATE: 10/14/19 1230 .NET DEVELOPER: ADENIKE 10/14/19 1230 RPT#: [id number] DC DATE: STATUS: ADM IN [place] [id number] [place] [address] END OF REPORT
--- NOTE | 2019-10-14 13:30 | NUR ---
DISCHARGE INSTRUCTIONS PROVIDED. EDUCATION REGARDING WOUND CARE AND MEDICATIONS PROVIDED. PT DENIES QUESTIONS AT THIS TIME. PT TAKEN OUT TO PRIVATE VEHICLE WITH ALL PERSONAL BELONGINGS VIA W/C
--- NOTE | 2019-10-14 18:47 | NUR ---
OT NOTE: PT COMPLETED ADL MOB WITH RW WITH CGA-MIN A. PT COMPLETED SIT TO STAND WIHT CGA. PT DOING WELL. [phone] THANK YOU,NHI DUNCAN
== END 2019-10-14 14:22 | disposition home health service (06) | DRG 469 ==
LOC: D.SDCHOLD 10-10 05:39 → D.M3 10-10 05:39 → D.SDCHOLD 10-10 07:45 → D.M3 10-10 09:57 → D.SDCHOLD 10-10 10:00 → D.M3 10-14 14:22
PROVIDERS: Internal Medicine Nephrology; ADMIT Orthopaedic Surgery; ATTEND Orthopaedic Surgery
PROC: 0SRC0J9 Replacement of Right Knee Joint with Synthetic Substitute, Cemented, Open Approach (ICD-10-PCS; principal; 2019-10-10 07:45)
PROC: 0SSDXZZ Reposition Left Knee Joint, External Approach (ICD-10-PCS; 2019-10-10 07:45)
DX: M17.0 Bilateral primary osteoarthritis of knee (principal); J18.9 Pneumonia, unspecified organism; D62 Acute posthemorrhagic anemia; I10 Essential (primary) hypertension; K21.9 Gastro-esophageal reflux disease without esophagitis; I95.81 Postprocedural hypotension; Z87.891 Personal history of nicotine dependence

== ENCOUNTER 2020-02-06 11:54 | Day surgery (SDC) | payer MEDICARE, OTHER ==
[~2020-02-06] VITALS: Ht 162.6 cm; Wt 74.8 kg
[~2020-02-06 11:54] MED LIST: ALENDRONATE SOD35 MG PO; CENTRUM SILVER1 EAC3 PO; COREG 3.1253.125 MG PO; ELIQUIS2.5 MG PO; FISH OIL 1,0001 CA1 PO; HYDROCODON-ACE1 EA10 PO; LEVAQUIN750 MG PO; LIPITOR10 MG PO; LISINOPRIL40 MG PO; NORVASC10 MG PO; PEPCID40 MG PO; VITAMIN D10000 UNI1 PO; ZANAFLEX2 M1 PO; ZANAFLEX4 MG PO
[2020-02-06 12:48] LABS: HEMATOCRIT 39.5 % (36.0-48.0); HEMOGLOBIN 12.6 g/dL (12-16); MCH 30.4 pg (26.0-34.0); MCHC 31.9 g/dL (31.0-37.0); MCV 95.2 fL (80.0-100.0); MEAN PLATELET VOLUME 10.3 fL (7.4-10.4); RBC 4.15 10x6/uL (4.00-5.40); RDW 15.1 % (11.5-14.5); WBC 11.6 10x3/uL (4.8-10.8)
[2020-02-06 13:17] VITALS: BP 123/71; Ht 162.6 cm; Wt 74.8 kg
--- NOTE | 2020-02-06 15:20 | NUR ---
REPORT RECEIVED FROM ANSHUL CARRILLO CRNA REGARDING NERVE BLOCK AND SEDATION JUST ADMINISTERED. PATIENT LYING IN BED, AWAKE, ALERT, DENIES COMPLAINTS. BP 121/55, HR 84, O2 SAT 99% ON RA, RR 16. CALL BUTTON IN REACH, MONITORS ON WITH ALARMS ESTABLISHED.
--- NOTE | 2020-02-06 15:35 | NUR ---
PATIENT POST SEDATION AND NERVE BLOCK, LYING IN BED, AWAKE, ALERT, DENIES COMPLAINTS EXCEPT SOME SHIVERING. WARM BLANKET PROVIDED. BP 115/43, HR 81, RR 16, O2 SAT 99% ON RA. WARM BLANKET IMPROVES SHIVERING
--- NOTE | 2020-02-06 16:35 | NUR ---
PATIENT COMPLAINS OF SEVERE CRAMPING PAIN IN RIGHT LOWER LEG, CRYING "OH I'M HAVING A CHARLEY HORSE. OH IT'S SO TERRIBLE. I'D RATHER HAVE A BABY THAN HAVE THIS." CALL PLACED TO ANESTHESIA DEPARTMENT. ANSHUL CARRILLO CRNA PRESENTS TO PATIENT'S BEDSIDE, ORDERS VALIUM. 1645 CALL PLACED TO PHARMACY TO OBTAIN VALIUM DUE TO VALIUM NOT BEING AVAILABLE ON THE FLOOR AND TO PACU, NO VALIUM IV AVAILABLE IN PACU. PATIENT CONTINUES CRYING AND MOANING AND CLUTCHING RIGHT LOWER LEG AND COMPLAINING OF CRAMPING. 170 VALIUM IV IS AVAILABLE AND GIVEN IN LEFT AC PIV, PATIENT HAS INSTANT RELIEF AND CEASING CRYING. PATIENT IS AWAKE AND ALERT AND CALM.
--- NOTE | 2020-02-06 18:40 | NUR ---
PATIENT AMBULATES TO BATHROOM USING WALKER WITH STAND-BY ASSIST. KNEE IMMOBILIZER IN PLACE TO RIGHT KNEE. PATIENT AMBULATES WITHOUT UNSTEADINESS. LEFT AC PIV DC'D WITH TIP INTACT. THIS NURSE ASSISTS PATIENT WITH DRESSING AND THEN REPLACING RIGHT KNEE IMMOBILIZER OVER PANTS. 190 DISCHARGE INSTRUCTIONS REVIEWED WITH PATIENT, DISCHARGED HOME VIA WHEELCHAIR TO PRIVATE VEHICLE WITH SPOUSE
--- NOTE | 2020-02-08 08:27 | OP ---
PATIENT NAME: NICOLE CLIFTON MEDICAL RECORD: [id number] :47 LOCATION:[facility] ADMISSION DATE: SURGEON: MAXIMUS CORREA MD DATE OF OPERATION: 02/06/2020 PREOPERATIVE DIAGNOSIS: Arthrofibrosis of the right knee -- stiff knee, status post total knee arthroplasty. POSTOPERATIVE DIAGNOSIS: Arthrofibrosis of the right knee -- stiff knee, status post total knee arthroplasty. PROCEDURE: Right knee manipulation under anesthesia. SURGEON: Maximus Correa MD ANESTHESIA: TIVA with a preoperative block. INTRAOPERATIVE COMPLICATIONS: None. SUMMARY OF PATHOLOGIC FINDINGS: Upon manipulation, excellent manipulation was achieved with good release of adhesions to approximately 150 degrees of knee flexion and approximately 0 degrees of knee extension. OPERATIVE SUMMARY IN DETAIL: After obtaining the appropriate preoperative orthopedic surgery consent as well as anesthetic consultation, evaluation and clearance, the patient was brought to the operating room and placed on the operating table in the supine position. After adequate general TIVA anesthesia was administered, the knee was manipulated, results as noted above. It was first manipulated in flexion, then followed by manipulation, extension, and flexion again. Having completed this, the patient was taken to outpatient in stable condition. All final needle and sponge counts were correct. TRANSINT:[id number] Voice Confirmation ID: [id number] DOCUMENT ID: [id number] SUNNY ROSA, MAXIMUS SHIN at 0827 CC: [id number] DICTATION DATE: 02/07/20 1656 FURNITURE PACKER: 02/08/20 0215 [facility] 02/06/20 [id number] [place] [address]
== END 2020-02-06 19:00 | disposition home or self-care (01) ==
LOC: D.OPS 11:54 → D.PAN 12:45 → D.OPS 12:45 → D.PAN 13:15 → D.OPS 14:30 → D.PAN 15:45 → D.OPS 15:55
PROVIDERS: Anesthesiology; ATTEND Orthopaedic Surgery
DX: M24.661 Ankylosis, right knee (principal); M25.561 Pain in right knee

== ENCOUNTER → 2020-10-29 18:46 | Outpatient (CLI) | payer MEDICARE, OTHER ==
[2020-02-06 13:17] VITALS: BMI 28.4
== END | disposition home or self-care (01) ==
LOC: D.LABREF 18:46
PROVIDERS: ATTEND Orthopaedic Surgery
DX: M17.11 Unilateral primary osteoarthritis, right knee (principal)

== ENCOUNTER 2020-10-30 16:12 | Inpatient (IN) | payer MEDICARE, OTHER ==
[~2020-10-30] VITALS: Ht 162.6 cm; Wt 80.5 kg
[2020-12-14] MEDS ORDERED: SOMA350 MG PO (14:48)
[2020-12-14 15:42] LABS: BASOPHILS 0.3 % (0-2); EOSINOPHILS 1.1 % (0-7); HEMATOCRIT 39.6 % (36.0-48.0); IMMATURE GRANULOCYTES 0.2 % (0-5); LYMPHOCYTE ABS# 4.95 10x3/uL (1.18-3.74); LYMPHOCYTES 45.4 % (15-50); MCH 31.6 pg (26.0-34.0); MCHC 32.8 g/dL (31.0-37.0); MCV 96.1 fL (80.0-100.0); MEAN PLATELET VOLUME 10.7 fL (7.4-10.4); MONOCYTES 4.8 % (2-11); NEUTROPHIL ABS# 5.26 10x3/uL (1.56-6.13); NEUTROPHILS 48.2 % (40-80); PLATELET COUNT 314 10x3/uL (130-400); RBC 4.12 10x6/uL (4.00-5.40); RDW 13.7 % (11.5-14.5); WBC 10.9 10x3/uL (4.8-10.8)
[2020-12-14 15:49] LABS: ANION GAP 14.7 mmol/L (8-16); CALCIUM 10.4 mg/dL (8.5-10.1); POTASSIUM - SERUM 4.7 mmol/L (3.5-5.1)
[2020-12-14 15:54] LABS: BILIRUBIN NEGATIVE (NEGATIVE); KETONE NEGATIVE (NEGATIVE); NITRITE NEGATIVE (NEGATIVE); UROBILINOGEN NORMAL mg/dL (< 2)
[2020-12-14 16:06] LABS: APTT 24.1 SECONDS (22.8-39.4); INR 1.01 (0.85-1.17); PROTIME 12.3 SECONDS (11.6-15.0)
[2020-12-18] VITALS (11 sets, daily range): BP systolic 89–131; BP diastolic 48–71; Ht 162.6 cm; Wt 80.5 kg
--- NOTE | 2020-12-18 18:05 | NUR ---
RECEIVED TO ROOM 1212 VIA BED FROM PACU. A/O X3. C./O BEING HUNGRY. DRESSING TO RIGHT KNEE IS DRY AND INTACT. DENIES NEEDS.
--- NOTE | 2020-12-18 19:33 | NUR ---
PT AWAKE, ASSESSMENT PER FLOW SHEET, VS CONTINUE, DRESSING TO RIGHT KNEE CDI WITH NO DRAINAGE NOTED, FRESH ICE PACK, INFORMED PT THAT I WILL PLACE HER ON THE CPM SHORTLY, PT VERBALIZES UNDERSTANDING, PT REPORTS FLATUS, PT INST ON WHEN TO VOID, VERBALIZES UNDERSTANDING, NEW BAG OF 1/2NS HUNG AND ANCEF IVPB PER MD ORDERS, SEE EMAR, PT CHANGED INTO GOWN, INST ON AND DEMOSTRATED I.S. WITH GOOD EFFORT, TEDS AND SCD'S ON AND WORKING PROPERLY, RATES PAIN 10, INFORMED PT THAT I WILL CHECK ON PAIN MED AND ADM, DENIES FURTHER NEEDS
--- NOTE | 2020-12-18 20:00 | NUR ---
PT PLACED ON CPM AT THIS TIME, REQUESTED AND SERVED TEA, INFORMED PT THAT I BROUGHT IN HER PAIN MED, PT STATES "I REALLY DON'T THINK I NEED IT RIGHT NOW", TALKED TO PT ABOUT CONTROLLING PAIN, PT STILL REFUSES IT AT THIS TIME, STATES "I'LL SEE HOW I FEEL DURING THIS", PT DENIES FURTHER NEEDS
--- NOTE | 2020-12-18 21:34 | NUR ---
PT RESTING WITH EYES CLOSED, AROUSES TO SOFT VERBAL STIMULATION, ADM 2100 MEDS PER MD ORDERS, SEE EMAR, PT SPILLED HER TEA ON SELF, GOWN AND LINENS CHANGED, PT CONTINUES TO DENY NEED FOR PAIN MED
--- NOTE | 2020-12-18 21:45 | NUR ---
ASHLY ALVARES, GERBER TO ROOM FOR ROUNDS, REPORT OF BP 96/48
--- NOTE | 2020-12-18 23:30 | NUR ---
PT RESTING WITH EYES CLOSED, AROUSES TO SOFT VERBAL STIMULATION, PT REMOVED FROM CPM, PT UP TO BR VIA WALKER WITH ASSISTANCE, VOIDED WITH NO DIFFICULTY, PT BACK TO BED, FRESH ICE PACK TO KNEE, ICE FOR TEA PROVIDED, VS OBTAINED, PT DENIES NEED FOR PAIN MED AT THIS TIME, SCD'S RECONNECTED TO PUMP AND WORKING PROPERLY, PT DENIES FURTHER NEEDS, FALL PRECAUTIONS IN PLACE
--- NOTE | 2020-12-19 00:22 | NUR ---
PT JOURNAL ENTRY AUDIT CLERK LIGHT, STATES "I CAN'T GET THIS BED TO WORK", PT REMINDED TO PUSH GREEN ENTER BUTTON FIRST, PT SLIGHTLY TILTED SELF TO RIGHT SIDE FOR COMFORT, PT DENIES FURTHER NEEDS, FALL PRECAUTIONS IN PLACE
--- NOTE | 2020-12-19 02:21 | NUR ---
PT RESTING WITH EYES CLOSED, RESP QUIET, NO DISTRESS NOTED, LEFT UNDISTURBED AT THIS TIME
--- NOTE | 2020-12-19 04:16 | NUR ---
PT RESTING WITH EYES CLOSED, AROUSES TO SOFT VERBAL STIMULATION, VS OBTAINED, PT UP TO BR VIA WALKER WITH ASSISTANCE, VOIDED WITH NO DIFFICULTY, PT BACK TO BED, SCD'S RECONNECTED AND WORKING PROPERLY, NEW BAG OF 1/2 NS AND ANCEF HUNG PER MD ORDERS, SEE EMAR, PT DENIES NEED FOR PAIN MED AT THIS TIME, FRESH ICE PACK TO RIGHT KNEE, INFORMED PT THAT I WILL BE BACK SHORTLY TO START CPM, PUMPA CLEARED, PT DENIES FURTHER NEEDS
[2020-12-19 04:20] VITALS: BP 109/65
--- NOTE | 2020-12-19 05:20 | NUR ---
PT AWAKE, PT PLACED ON CPM AT THIS TIME
[2020-12-19 06:04] LABS: HEMATOCRIT 32.5 % (36.0-48.0); HEMOGLOBIN 10.6 g/dL (12-16); MCH 31.2 pg (26.0-34.0); MCHC 32.8 g/dL (31.0-37.0); MCV 95.1 fL (80.0-100.0); MEAN PLATELET VOLUME 9.9 fL (7.4-10.4); RBC 3.42 10x6/uL (4.00-5.40); RDW 13.6 % (11.5-14.5); WBC 19.8 10x3/uL (4.8-10.8)
[2020-12-19 06:16] LABS: ALBUMIN 3.1 g/dL (3.4-5.0); ANION GAP 17.6 mmol/L (8-16); BILIRUBIN - TOTAL 0.38 mg/dL (0.2-1.3); CALCIUM 8.2 mg/dL (8.5-10.1); CARBON DIOXIDE 20.2 mmol/L (21.0-32.0); CREATININE - SERUM 1.6 mg/dL (0.6-1.3); POTASSIUM - SERUM 4.8 mmol/L (3.5-5.1); PROTEIN - SERUM 6.1 g/dL (6.4-8.2)
--- NOTE | 2020-12-19 06:24 | OP ---
PATIENT NAME: NICOLE HELLER MEDICAL RECORD: [id number] :47 LOCATION:D. D.1212 ADMISSION DATE:12/18/20 SURGEON: FOREIGN BATES DO DATE OF OPERATION: 12/18/2020 PROCEDURE PERFORMED: Revision right total knee arthroplasty. 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 INDICATIONS: Ms. Heller is a 75-year-old female who had a right total knee done in January of last year by a different surgeon, could not quite obtain full extension, lacked about 20 degrees and she can only flex to about 90. She also had a manipulation and she did not obtain any more range of motion. She said she simply could not live like that and wanted something done surgically. X-rays revealed a flexed femoral component. I talked to her about that and said that we could take that off and do removal of partial synovectomy and get some more motion of the knee. She is okay with that. She is aware of the increased risk for infection, need for revision, bleeding, fracture, damage to nerves and vessels in the area, continued pain and instability, need for further surgery and component failure. She was okay with all that and she was also aware of the risks of blood clots and even and signed the consent. SURGEON: Foreign Bates DO. DESCRIPTION OF PROCEDURE: The patient was taken to the operative suite after block by anesthesia in preoperative area, laid in supine position, given general anesthetic and LMA was placed. She was given 2 grams Ancef, 80 mg gentamicin, and a gram of TXA. The right lower extremity was prepped and draped in sterile fashion. Timeout was performed. Everyone was in agreement with correct side, site, patient and procedure. I then marked out the old incision, covered in Ioban on the anterior knee. I then made an incision over the anterior knee making careful dissection down to the capsule and using a fresh 10 blade to go through the old medial parapatellar approach, exposed the femur and the tibia and removed the poly. I then noted that she had an almost bony overgrowth at the notch of the femur, which was definitely blocking her extension. I then proceeded to remove that and the femoral component using flexible osteotomes and a sagittal saw. Once that came loose, I did remove part of the posterior condyle, medial and lateral femoral condyle and also some of the distal. I then freshened up the distal cut. We tried to do a component with just a 5 augment with a PS knee and that did not work. It would not fit and needed to have some more stability, so we decided to use a stem. I then reamed the femur and cut the distal femur on the medial side and a part of the posterior femur in anticipation for 5 augmented in lateral side and use a 10. I also cleaned up the anterior cut as it needed to be repositioned. Once the cuts were adequate, we got the construct built. It was built on back table. We then mixed the cement and augmented the lateral femoral condyle with some cement as needed a few more millimeters, rather than the 10, in order to get the proper external rotation on the femoral component. We then cemented all over the femur and held it into place in correct rotation and extension in position while the cement dried, removing any excess cement. Once it dried, we trialed up to a 19 poly; 19 poly fit very well. She had good stability in varus and valgus stress in OPERATIVE REPORT [id number] ELODIA,NICOLE A flexion, mid flexion and extension. I then implanted the 19 poly. Then, she had great range of motion, full extension and full flexion with that end. I then irrigated with 10% povidone-iodine and 500 mL normal saline solution and let it sit for a couple of minutes and irrigated out with over a liter of normal saline. I then put in the joint cocktail and injected all around about the knee. We then put in Alex, vancomycin and tobramycin powder and closed the capsule with #1 Vicryl in a [id number] fashion. Devon Joyner, certified surgical services asst, then closed the capsule over that with #1 Stratafix in a running stitch and then closed the skin with 2-0 Vicryl in inverted interrupted fashion, placed ZipLine on the knee and covered it with Adaptic, 4 x 4, ABD, Webril and Carlos wrap and placed a ANGELITA hose up to the knee. She was awakened and taken to recovery in stable condition. BLOOD LOSS: Approximately 400 mL. COMPLICATIONS: None. TRANSINT:[id number] Voice Confirmation ID: [id number] DOCUMENT ID: [id number] FOREIGN BATES, at 0624 CC: [id number] DICTATION DATE: 12/18/20 165 JOURNEYMAN MECHANIC: 12/19/20 0054 ADM IN [facility] [address] [id number]
--- NOTE | 2020-12-19 07:42 | NUR ---
PT RESTING IN BED WITH CPM IN PLACE. RESP EVEN AND UNLABORED. IV TO LEFT WRIST WITH 1/2 NS @ 100ML/HR INFUSING VIA PUMP. SITE WITHOUT REDNESS OR EDEMA. DRESSING TO RIGHT LOWER EXTREMITY C/D/I. DENIES FURTHER NEEDS AT THIS TIME. CL WITHIN REACH. ENCOURAGED TO CALL WITH NEEDS. CONTINUE POC
[2020-12-19 08:31] VITALS: BP 106/60
[2020-12-19 11:33] VITALS: BP 106/41
[2020-12-19] MEDS ORDERED: HYDROCODON-ACE1 EA10 PO (12:30)
[2020-12-19] MEDS ORDERED: ELIQUIS2.5 MG PO (12:30)
--- NOTE | 2020-12-19 15:53 | NUR ---
PT PROVIDED WITH DISCHARGE INSTRUCTIONS WITH PRESCRIPTIONS. DISCUSSED NEW MEDICATIONS PRESCRIBED, STRESSING THE IMPORTANCE OF TAKING PRESCRIBED ELIQUIS. PT VOICES UNDERSTANDING. DISCUSSED DRESSING CHANGES EVERY 4-5 DAYS, DRESSING CHANGED AT THIS TIME TO RIGHT LOWER EXTREMITY. EDGES WELL APROXIMATED, MINIMAL DRAINAGE NOTED. SITE WITHOUT REDNESS OR EDEMA. MEPILEX AG APPLIED TO INCISION SITE. PT DENIES ANY QUESTIONS OR CONCERNS AT THIS TIME. PT TAKEN OUT VIA W/C TO PRIVATE VEHICLE WITH ALL PERSONAL POSESSIONS.
--- NOTE | 2020-12-19 16:46 | MORECARE ---
CASE MANAGEMENT DISCHARGE SUMMARY PATIENT: NICOLE CLIFTON UNIT: [id number] ADM DATE: 12/18/20 AGE: 75 : 46 SEX: F ROOM/BED: D.1212 AUTHOR: HADLEY,DOC PHYSICIAN: REFERRING PHYSICIAN: ANSHUL BATES DO DATE OF SERVICE: 12/19/20 Case Management Discharge Planning Summary COMMENTS ENTERED DATE: 12/19/20 16:41 CT COMMENT TYPE: Discharge Planning REVIEWER: Heidy Connor PCP: Diony Salvador MD Pharmacy: [facility] [address]. or [facility] CM met with patient at bedside. Patient states that she lives at home with family. Patient states that she has 3 steps going into her home. Patient states that she has a walker, bedside commode, shower chair and CPM at home. Patient states that she wishes to do outpatient therapy when discharged. AGNIESZKA signed for Family Medicine Physical Therapy. Patient states that feels safe to discharge to her home with significant other and she will transportation home and to therapy. CM made appointment for first therapy appointment ThursdayDecember 21 at 2 pm. CM will give copy of appointment and order to patient. CM will continue to follow and assist as needed with discharge planning / needs DCP REVIEW SUMMARY ANTICIPATED D/C DATE: EXPECTED LOS : CASE STATUS: DCP Initiated INITIAL REVIEW: 12/18/2020 INITIAL REVIEWER: Heidy Connor FINAL DISCHARGE DISPOSITION: : FINAL REVIEWER: FINAL REVIEW DATE: DCP Focus Questions & Answers QUESTION: ANSWER : PATIENT: NICOLE CLIFTON ENCOUNTER: [id number] MEDICAL RECORD#: [id number] ADMISSION DATE: 12/18/2020 DISCHARGE DATE: 12/19/2020 ATTENDING MD: ANSHUL CABRAL : AGE: 75 MARITAL STATUS: S DC PLAN ID: [id number] FACILITY: [facility] PRINTED ON: 12/19/20 16:46 CT All edits/amendments must be made on the electronic document DICTATION DATE: 12/19/201645 LENS ASSORTER: ADENIKE 12/19/201645 RPT#: [id number] DC DATE:12/19/20 STATUS: DIS IN [facility] [address] [place] [address] END OF REPORT
--- NOTE | 2020-12-19 20:04 | MORECARE ---
CASE MANAGEMENT DISCHARGE SUMMARY PATIENT: NICOLE CLIFTON UNIT: [id number] ADM DATE: 12/18/20 AGE: 75 : 46 SEX: F ROOM/BED: D.1212 AUTHOR: HADLEY,BRENDEN PHYSICIAN: REFERRING PHYSICIAN: ANSHUL BATES DO DATE OF SERVICE: 12/19/20 Case Management Discharge Planning Summary COMMENTS ENTERED DATE: 12/19/20 16:41 CT COMMENT TYPE: Discharge Planning REVIEWER: Heidy Connor PCP: Diony Salvador MD Pharmacy: [facility] on [address]. or [facility] CM met with patient at bedside. Patient states that she lives at home with family. Patient states that she has 3 steps going into her home. Patient states that she has a walker, bedside commode, shower chair and CPM at home. Patient states that she wishes to do outpatient therapy when discharged. AGNIESZKA signed for Family Medicine Physical Therapy. Patient states that feels safe to discharge to her home with significant other and she will transportation home and to therapy. CM made appointment for first therapy appointment ThursdayDecember 21 at 2 pm. CM will give copy of appointment and order to patient. CM will continue to follow and assist as needed with discharge planning / needs DCP REVIEW SUMMARY ANTICIPATED D/C DATE: EXPECTED LOS : CASE STATUS: DCP Initiated INITIAL REVIEW: 12/18/2020 INITIAL REVIEWER: Heidy Connor FINAL DISCHARGE DISPOSITION: : FINAL REVIEWER: FINAL REVIEW DATE: DCP Focus Questions & Answers QUESTION: ANSWER : PATIENT: NICOLE CLIFTON ENCOUNTER: [id number] MEDICAL RECORD#: [id number] ADMISSION DATE: 12/18/2020 DISCHARGE DATE: 12/19/2020 ATTENDING MD: ANSHUL CABRAL : AGE: 75 MARITAL STATUS: S DC PLAN ID: [id number] FACILITY: [facility] PRINTED ON: 12/19/20 20:04 CT All edits/amendments must be made on the electronic document DICTATION DATE: 12/19/202003 STAFF TECHNOLOGIST: ADENIKE 12/19/202003 RPT#: [id number] DC DATE:12/19/20 STATUS: DIS IN [facility] [address] [place] [address] END OF REPORT
== END 2020-12-19 15:57 | disposition home or self-care (01) | DRG 467 ==
LOC: D.SDCHOLD 12-18 07:00 → D.M3 12-18 17:07
PROVIDERS: Family Medicine; ADMIT Orthopaedic Surgery; ATTEND Orthopaedic Surgery
PROC: 0SRC0J9 Replacement of Right Knee Joint with Synthetic Substitute, Cemented, Open Approach (ICD-10-PCS; 2020-12-18)
PROC: 0SPC0JZ Removal of Synthetic Substitute from Right Knee Joint, Open Approach (ICD-10-PCS; principal; 2020-12-18 11:30)
DX: M24.661 Ankylosis, right knee (principal); T84.022A Instability of internal right knee prosthesis, initial encounter; M24.561 Contracture, right knee; Y83.9 Surgical procedure, unspecified as the cause of abnormal reaction of the patient, or of later complication, without mention of misadventure at the time of the procedure; I10 Essential (primary) hypertension; K21.9 Gastro-esophageal reflux disease without esophagitis; M25.661 Stiffness of right knee, not elsewhere classified